=== PATIENT | female | born 1965 | race Caucasian/White ===

== ENCOUNTER 2016-07-09 18:12 | Emergency (ER) | payer BC ==
[~2016-07-09] VITALS: Ht 175.2 cm; Wt 59.0 kg
[~2016-07-09 18:12] MED LIST: ANTIBIOTIC O500 U/GM TP; AUGMENTIN 875 M1 TAB PO; CLARITIN10 MG PO; EPI EZ PEN1 MG/ML IM; KEFLEX500 M1 PO; MEDROL DOSEPAK4 MG PO; NAPROSYN500 MG PO
[2016-07-09] MEDS ORDERED: MEDROL DOSEPAK4 MG PO (19:36)
[2016-07-09] MEDS ORDERED: NAPROSYN500 MG PO (19:36)
[2016-07-09] MEDS ORDERED: CYCLOBENZAPRINE10 MG PO (19:36)
== END 2016-07-09 19:12 | disposition home or self-care (01) ==
LOC: ED 18:12
DX: M54.31 Sciatica, right side (principal); F17.200 Nicotine dependence, unspecified, uncomplicated; Z88.1 Allergy status to other antibiotic agents; Z88.8 Allergy status to other drugs, medicaments and biological substances

== ENCOUNTER → 2017-01-16 | Outpatient (CLI) | payer BC ==
[~2017-01-16] MED LIST changes: +CYCLOBENZAPRINE10 MG PO
== END | disposition home or self-care (01) ==
LOC: RAD 01-04 13:00
DX: Z13.820 Encounter for screening for osteoporosis (principal); N95.9 Unspecified menopausal and perimenopausal disorder; R29.890 Loss of height; I10 Essential (primary) hypertension

== ENCOUNTER 2017-04-09 21:22 | Emergency (ER) | payer BC ==
[~2017-04-09] VITALS: Ht 175.2 cm; Wt 59.0 kg
[2017-04-09] MEDS ORDERED: NORVASC5 MG PO (21:35)
[2017-04-09] MEDS ORDERED: AUGMENTIN 875875 MG PO (22:38)
== END 2017-04-09 23:38 | disposition home or self-care (01) ==
LOC: ED 21:22
DX: J32.9 Chronic sinusitis, unspecified (principal); Z88.2 Allergy status to sulfonamides; Z88.8 Allergy status to other drugs, medicaments and biological substances; Z79.899 Other long term (current) drug therapy

== ENCOUNTER → 2017-07-09 | Outpatient (CLI) | payer BC ==
[~2017-07-09] MED LIST changes: +ARMOUR THYROID60 MG PO; +AUGMENTIN 875875 MG PO; +CYMBALTA60 MG PO; +Motrin,Rufen800 MG PO; +NORVASC5 MG PO; +SKELAXIN800 M1 PO
--- NOTE | ~2017-07-09 | ST ---
[place], [place] EXERCISE STRESS TEST REPORT NAME[facility]: [id number] UNIT #: [id number] ROOM: DOCTOR: KASSANDRA MONTEJO MD BIRTHDATE: [birth year] DOS: 07/09/2017 INDICATIONS: Chest pain and dyspnea. PROCEDURE: The patient exercised on a full protocol stress test. She was able to walk 9 minutes and achieved a maximum heart rate of 146, which was 86% of her maximum predicted heart rate at a workload of 10.0 METs. She stopped for fatigue and did not reproduce her chest pain. The resting electrocardiogram was normal. No diagnostic ST or T-wave changes occurred with the exercise. One minute prior to completion of exercise protocol, she was given radionuclide intravenously. IMPRESSION: 1. Excellent exercise capacity without chest pain or diagnostic electrocardiographic changes. 2. Briseno treadmill score 9, consistent with low risk for cardiac problems. 3. Radionuclide injected. Please see the separate imaging report for further details of the patient's stress test results. KASSANDRA MONTEJO MD CM:STRESS:EXERCISE STRESS TEST REPORT [id number] KASSANDRA MONTEJO MD
== END | disposition home or self-care (01) ==
LOC: CARD 07-06 08:10
DX: R06.02 Shortness of breath (principal); R07.9 Chest pain, unspecified; R06.00 Dyspnea, unspecified

== ENCOUNTER → 2019-04-03 | Outpatient (CLI) | payer BC | LOC: US 15:00 | DX: R60.0 Localized edema (principal); M79.661 Pain in right lower leg ==